=== PATIENT | female | born 1980 | race Caucasian/White ===

== ENCOUNTER 2016-10-04 | Emergency (ER) | payer BC ==
[2016-10-04 00:10] VITALS: BP 126/88
[2016-10-04 00:26] LABS: Hematocrit 37.6 % (37.0-47.0); Hemoglobin 12.7 gm/dL (12.5-16.0); Mean Cell Volume 85.8 fl (78-100); Mean Corpuscular Hgb Conc 33.8 g/dl (32-36); Neutrophil # 12.1 K/mm3 (1.3-6.0); Platelet Count 292 K/mm3 (150-450); Red Blood Count 4.38 M/mm3 (4.2-5.4); Red Cell Distribution Width 12.3 % (11.5-14.0); White Blood Count 14.1 K/mm3 (4.0-10.5)
[2016-10-04 00:33] LABS: Urine Bilirubin Negative (NEGATIVE); Urine Blood Negative /ul (NEGATIVE); Urine Ketone 5 mg/dL (NEGATIVE); Urine Nitrite Negative (NEGATIVE); Urine Protein Negative (NEGATIVE); Urine Urobilinogen Normal (NORMAL); Urine pH 7.5 pH (5.0-7.0)
[2016-10-04 00:39] LABS: Urine Amorphous Sediment Few - 1+ (NONE-FEW); Urine Appearance Clear; Urine Bacteria None Seen; Urine Color Yellow; Urine Mucus Few - 1+; Urine RBC 0-5 /hpf (0-5); Urine WBC 0-5 /hpf (0-5)
[2016-10-04 00:52] LABS: Albumin * 3.7 gm/dl (3.4-5.0); Anion Gap 13.3 mmol/L (6.8-13.8); BUN/Creatinine Ratio 12.8 (9.0-21.6); Bilirubin, Total 0.4 mg/dL (0.0-1.1); Ca. Corrected For Albumin 8.5 mg/dL (8.4-10.2); Calcium * 8.6 mg/dL (7.9-10.9); Carbon Dioxide 25.9 mmol/L (24-32.6); Potassium 3.2 mmol/L (3.4-4.6)
== END 2016-10-04 01:15 | disposition left against medical advice (07) ==
LOC: ER
DX: Z53.21 Procedure and treatment not carried out due to patient leaving prior to being seen by health care provider (principal)

== ENCOUNTER 2019-03-21 19:29 | Observation (INO) ==
[2019-03-21] MEDS ORDERED: ONDANSETRON HCL/PF 2 MG/ML VIAL IV ONE (20:18)
[2019-03-21] MEDS ORDERED: KETOROLAC TROMETHAMINE 30 MG/ML VIAL IV ONE (20:18)
[2019-03-21 20:29] LABS: Hematocrit 43.9 % (37.0-47.0); Hemoglobin 14.6 gm/dL (12.5-16.0); Mean Cell Volume 90.3 fl (78-100); Mean Corpuscular Hgb Conc 33.3 g/dl (32-36); Mean Platelet Volume 10.2 fl (8-12.5); Neutrophil # 14.4 K/mm3 (1.3-6.0); Neutrophil % 85.1 % (42-75.0); Platelet Count 290 K/mm3 (150-450); Red Blood Count 4.86 M/mm3 (4.2-5.4); Red Cell Distribution Width 12.5 % (11.5-14.0); White Blood Count 16.9 K/mm3 (4.0-10.5)
[2019-03-21 20:44] LABS: Anion Gap 14.4 mmol/L (6.8-13.8); BUN/Creatinine Ratio 13.6 (9.0-21.6); Bilirubin, Total 0.4 mg/dL (0.0-1.1); Ca. Corrected For Albumin 8.9 mg/dL (8.4-10.2); Calcium * 9.2 mg/dL (7.9-10.9); Carbon Dioxide 24.3 mmol/L (24-32.6); Potassium 3.7 mmol/L (3.4-4.6); Total Protein 7.7 gm/dL (6.2-8.2)
[2019-03-21 20:57] LABS: Urine Bilirubin Negative (NEGATIVE); Urine Blood Negative /ul (NEGATIVE); Urine Ketone Large mg/dL (NEGATIVE); Urine Nitrite Negative (NEGATIVE); Urine Protein 15 mg/dL (NEGATIVE); Urine Specific Gravity 1.015 SP.GR. (1.005-1.010); Urine Urobilinogen Normal (NORMAL); Urine pH 8.5 pH (5.0-7.0)
[2019-03-21 21:05] LABS: Urine Appearance Clear (CLEAR); Urine Bacteria TRACE; Urine Color Yellow; Urine RBC None Seen /hpf (0-5); Urine WBC TRACE /hpf (0-5)
--- NOTE | 2019-03-21 21:20 | ERNOTE ---
Abdominal HPI - Narrative Date of Service: 03/21/19 - General Chief Complaint: Abdominal Pain Time Seen by Provider: 03/21/19 20:09 Source: patient Exam Limitations: no limitations - Immun/Allergies/Home Medications Immunizatons: IMMUNIZATION HX Immunizations Up to Date Yes History of Influenza Vaccine Yes Allergies/Adverse Reactions: Allergies No Known Allergies Allergy (Verified 03/21/19 19:37) Home Medications: HOME MEDICATIONS alprazolam 0.5 mg tablet 0.5 mg PO BID PRN 08/30/18 [Last Taken Unknown] Esomeprazole Magnesium [Nexium] 40 mg PO DAILY 03/21/19 [Last Taken Unknown] - Pain Score Pain Score #1 Pain Score: 9 Abdominal Pain Onset Location: [facility] Pain Radiation: no radiation - History of Present Illness Narrative: Patient is brought to the emergency department by family members for left lower quadrant pain. She states this is severe, sharp stabbing and colicky. It started today about 1:00 in the afternoon. She started vomiting around 5:00 in the afternoon. She has not been able to get any better at home trying multiple different [id number] and position change maneuvers. She had a normal bowel movement today, no blood, no constipation or diarrhea. She states that she has vomited several times noting no blood or coffee-ground emesis. She had not been sick prior to the onset of pain and vomiting. She has urinated several times since onset of pain, has not noted any blood. She has never had a kidney stone, she has had a complete hysterectomy due to history of severe iron deficiency, trying to retain blood by decreasing menses. She is also had pyloric stenosis surgery as an adult. She has a large midline scar from this. She retains gallbladder, retains her appendix. She is on proton pump inhibitor, has been on this for years. She states that she has not been having trouble with her heartburn. No fevers Date (Duration): 03/21/19 Time (Timing): 13:00 Timing: getting worse, intermittent Quality: severe Activities at Onset: rest Associated Symptoms: Present: vomiting Review of Systems - Review of Systems Constitutional: Present: no symptoms reported ENT: Present: no symptoms reported Respiratory: Present: no symptoms reported Cardiology: Present: no symptoms reported Gastrointestinal/Abdominal: Present: See HPI Genitourinary: Present: no symptoms reported. Absent: hematuria, decreased urinary output Medical History (Last Reviewed 03/21/19 @ 21:17 by Roxy James MD) Acid reflux Onset Date: Unknown Anemia, iron deficiency Onset Date: Unknown d/t malabsorbtion History of blood transfusion Onset Date: ~03/2010 after pyloric stenosis surgery Hypertrophic pyloric stenosis Onset Date: ~03/2010 IUD complication Onset Date: Unknown Insomnia Onset Date: ~06/13/12 Pyloric stenosis, acquired Onset Date: ~03/2010 Surgical History: Surgical History (Last Reviewed 03/21/19 @ 21:17 by Roxy James MD) History of endometrial biopsy Onset Date: ~09/11/13 Negative for hyperplasia and malignancy History of hysteroscopy Onset Date: ~11/05/13 w/Novasure ablation History of total vaginal hysterectomy (TVH) Onset Date: ~10/21/14 Cervix-no pathology. Endometrium-absent endometrium exhibiting progesterone effect of myometrium. Myometrium-no pathologic findings. Hx of bilateral salpingectomy Onset Date: ~10/21/14 Hx of breast augmentation Onset Date: ~02/2014 Hx of cystoscopy Onset Date: ~10/21/14 Hx of laparoscopy Onset Date: ~09/2005 IUD removal Hx of ovarian cystectomy Onset Date: ~2005 Hx of pylorotomy Onset Date: ~03/2010 Hx of tonsillectomy Onset Date: Unknown 1 yrs old [place] teeth removed Onset Date: ~2012 Family History: Family History (Last Reviewed 03/21/19 @ 21:17 by Roxy James MD) Mother Hypertension Grandmother Heart disease Maternal Diabetes mellitus, type II Maternal Grandfather Heart disease Maternal Social History: (Last Reviewed 03/21/19 @ 21:17 by Roxy James MD) Social History: Marital status: household members: spouse, children number of children: 4 current occupational status: unemployed current occupation: Stay at home Mom current occupational exposures/hazards: No Service: No Tobacco: Smoking Status: Never smoker Alcohol: alcohol intake: current details: 1/month Substance Use: substance use type: does not use Dietary Habits: caffeine: Yes caffeine comment: Current every day Personal Safety: victim of physical abuse: No victim of emotional abuse: No Physical Exam - Physical Exam General Appearance: Present: wd/wn, alert, severe distress - See Head Exam: Present: normal inspection, no evidence of injury Ears, Nose, Throat: Present: normal ENT inspection Neck: Present: normal inspection Respiratory: Present: no respiratory distress - if he went into place an NG she was, normal breath sounds Cardiovascular/Chest: Present: regular rate, rhythm, no murmur, tachycardia - Call Gastrointestinal/Abdominal: Present: other - Patient's abdomen is soft, nondistended. She has pain in the left lower quadrant. This is worse with palpation. There is no guarding, no rebound, no signs of peritonitis. No masses palpated. She does not have left flank pain. There is no left upper quadrant or right upper quadrant pain. She has mild suprapubic pain. She has a well-healed anterior ventral scar from her pyloric stenosis surgery. Extremity Exam: Present: normal inspection, no edema Progress - Results and Orders Patient's Lab Results:: I have reviewed the patient's lab results. Results and Orders: Laboratory Tests 03/21/19 03/21/19 03/21/19 20:25 20:25 20:53 WBC 16.9 H Hgb 14.6 Hct 43.9 Plt Count 290 Sodium 134 Potassium 3.7 Chloride 99 BUN 12 Creatinine 0.88 Random Glucose 128 H AST 12 ALT 11 L Amylase 51 Lipase 126 Urine Ketones Large Urine Blood Negative - Vital Signs Patient's Vital Signs:: I have reviewed the patient's vital signs. Vital Signs: Vital Signs 03/21/19 19:39 Temperature 36.5 C Pulse Rate 84 Respiratory Rate 18 Blood Pressure 153/97 H O2 Sat by Pulse Oximetry 100 - CT/Ultrasound CT/Ultrasound Narrative: Patient CT scan shows small bowel obstruction, distal. There is a probable transition point at the ileocolic junction. The appendix is normal. There is no diverticulitis. - Progress/Reassessment Chief Complaint: Abdominal Pain Progress:: Improved Progress Note-Subjective: 03/21/19 21:[address] Alexander who is hospitalist rehabilitation physician this evening. Discussed the findings of CT scan as well as the patient's progress here. I recommended that the patient be hospitalized observation status for monitoring and bowel rest for her SBO. She was given additional pain medication, started on IV fluids for hydration. She will not have an NG placed at this time because she is not vomiting any longer. This can be placed if needed. Dr. Alexander agreed. The patient will be placed observation. I discussed this with patient and her family. Questions answered. Departure Clinical Impression: Small bowel obstruction - Departure Disposition: Still a patient Condition: Good Referrals: Janna Myrick DO [Primary Care Provider] -
[2019-03-21] MEDS ORDERED: HYDROmorphone HCL 1 MG/ML DISP.SYRIN IV ONE (21:31)
[2019-03-21] MEDS: NORMAL SALINE 1,000 ML IV PRN (21:44)
[2019-03-21] MEDS ORDERED: ONDANSETRON HCL/PF 2 MG/ML VIAL IV PRN (22:23)
[2019-03-21] MEDS ORDERED: HYDROmorphone HCL 1 MG/ML DISP.SYRIN IV PRN (22:23)
[2019-03-22] MEDS: NORMAL SALINE 1,000 ML IV PRN (05:12)
[2019-03-22 06:32] LABS: Albumin * 3.1 gm/dl (3.4-5.0); Anion Gap 10.4 mmol/L (6.8-13.8); BUN/Creatinine Ratio 16.3 (9.0-21.6); Bilirubin, Total 0.5 mg/dL (0.0-1.1); Ca. Corrected For Albumin 8.8 mg/dL (8.4-10.2); Calcium * 8.4 mg/dL (7.9-10.9); Carbon Dioxide 28.5 mmol/L (24-32.6); Potassium 3.9 mmol/L (3.4-4.6); Total Protein 6.2 gm/dL (6.2-8.2)
[2019-03-22 06:33] LABS: Hematocrit 38.8 % (37.0-47.0); Hemoglobin 12.8 gm/dL (12.5-16.0); Mean Cell Volume 92.2 fl (78-100); Mean Corpuscular Hemoglobin 30.4 pg (27-31); Mean Platelet Volume 10.7 fl (8-12.5); Neutrophil # 9.7 K/mm3 (1.3-6.0); Neutrophil % 79.2 % (42-75.0); Platelet Count 239 K/mm3 (150-450); Red Blood Count 4.21 M/mm3 (4.2-5.4); Red Cell Distribution Width 12.4 % (11.5-14.0); White Blood Count 12.2 K/mm3 (4.0-10.5)
[2019-03-22] MEDS ORDERED: ACETAMINOPHEN 500 MG TABLET PO PRN (09:54)
--- NOTE | 2019-03-22 13:23 | HPDIS ---
Chief Complaint - Chief Complaint Date of Service: 03/22/19 Time of Service: 09:20 Chief Complaint: Abdominal pain with nausea and vomiting History of Present Illness: Елена Boyce is a 38-year-old female who presented to ER with severe abdominal pain nausea and vomiting. CT scan revealed what appeared to be a distal small bowel obstruction. She was given antiemetics and started on IV fluids. Her nausea and vomiting stopped she had a restful night and is feeling much better this morning. She was able to eat a full liquid breakfast about 9:00 and then ate a soft diet for lunch. She has had no return of abdominal pain nausea or vomiting. There is not been any diarrhea either. She is up and ambulatory without difficulty. Laboratory work in the area ER showed the white count of 16,900 and this morning's repeat is 12,200. Electrolytes, renal function, and hepatic function are all normal. She has normal bowel sounds this morning. Her disposition is improved. Prognosis is good. Medical History (Last Reviewed 03/21/19 @ 22:21 by Imelda Jones RN) Acid reflux Onset Date: Unknown Anemia, iron deficiency Onset Date: Unknown d/t malabsorbtion History of blood transfusion Onset Date: ~03/2010 after pyloric stenosis surgery Hypertrophic pyloric stenosis Onset Date: ~03/2010 IUD complication Onset Date: Unknown Insomnia Onset Date: ~06/13/12 Pyloric stenosis, acquired Onset Date: ~03/2010 Surgical History: Surgical History (Last Reviewed 03/21/19 @ 22:21 by Imelda Jones RN) History of endometrial biopsy Onset Date: ~09/11/13 Negative for hyperplasia and malignancy History of hysteroscopy Onset Date: ~11/05/13 w/Novasure ablation History of total vaginal hysterectomy (TVH) Onset Date: ~10/21/14 Cervix-no pathology. Endometrium-absent endometrium exhibiting progesterone effect of myometrium. Myometrium-no pathologic findings. Hx of bilateral salpingectomy Onset Date: ~10/21/14 Hx of breast augmentation Onset Date: ~02/2014 Hx of cystoscopy Onset Date: ~10/21/14 Hx of laparoscopy Onset Date: ~09/2005 IUD removal Hx of ovarian cystectomy Onset Date: ~2005 Hx of pylorotomy Onset Date: ~03/2010 Hx of tonsillectomy Onset Date: Unknown 1 yrs old [place] teeth removed Onset Date: ~2012 Family History: Family History (Last Reviewed 03/21/19 @ 22:22 by Imelda Jones RN) Mother Hypertension Grandmother Heart disease Maternal Diabetes mellitus, type II Maternal Grandfather Heart disease Maternal Social History: (Last Reviewed 03/21/19 @ 22:26 by Imelda Jones RN) Social History: Marital status: household members: spouse, children number of children: 4 current occupational status: unemployed current occupation: Stay at home Mom current occupational exposures/hazards: No Service: No Tobacco: Smoking Status: Never smoker Alcohol: alcohol intake: current details: 1/month Substance Use: substance use type: does not use Dietary Habits: caffeine: Yes caffeine comment: Current every day Personal Safety: victim of physical abuse: No victim of emotional abuse: No Review Of Systems (GEN) - Review of Systems Generalized/Overall Review: Present: Malaise EENTM: Present: No Symptoms Reported Respiratory: Present: No Symptoms Reported Cardiac: Present: No Symptoms Reported Abdominal: Present: Nausea, Vomiting, Abdominal Pain Genitourinary: Present: No Symptoms Reported Musculoskeletal: Present: No Symptoms Reported Neurological: Present: No Symptoms Reported Skin: Present: No Symptoms Reported Endocrine: Present: No Symptoms Reported Misc: All systems neg except as marked Immunizations: IMMUNIZATION HX Immunizations Up to Date Yes History of Influenza Vaccine Yes Allergies/Adverse Reactions: Allergies Allergy/AdvReac Type Severity Reaction Status Date / Time No Known Allergies Allergy Verified 03/21/19 22:26 Home Medications: HOME MEDICATIONS alprazolam 0.5 mg tablet 0.5 mg PO BID PRN 08/30/18 [Last Taken Unknown] Esomeprazole Magnesium [Nexium] 40 mg PO DAILY 03/21/19 [Last Taken Unknown] Exam - Exam Vital Signs: Vital Signs - Last Taken Temp 37.2 C 03/22/19 10:26 Pulse 87 03/22/19 10:26 Resp 20 03/22/19 10:26 BP 129/79 03/22/19 10:26 Pulse Ox 99 03/22/19 07:00 Constitutional: Present: Alert, Oriented x3, Cooperative, Well developed, Well nourished, No distress ENT Exam: Present: normal ENT inspection, hearing grossly normal, pharynx normal Eye Exam: bilateral eye: normal inspection, PERRL, EOMI Neck: Present: non-tender, full range of motion, supple, normal inspection Back Exam: Present: normal inspection, no CVA tenderness, no vertebral tenderness Breasts: Present: Exam deferred Respiratory: Present: chest non-tender, lungs clear, normal breath sounds, no respiratory distress, no accessory muscle use Cardiovascular/Chest: Present: normal peripheral pulses, regular rate, rhythm, no chest tenderness, no edema, no gallop, no JVD, no murmur, no rub Peripheral Pulses: carotid (R): 2+, carotid (L): 2+, radial (R): 2+, radial (L): 2+ Abdomen: Present: Normal bowel sounds, soft, nontender - This morning. She had a lot of discomfort in the emergency room last night but that is all resolved now., nondistended, no rebound tenderness, no hepatospenomegaly /Rectal: Present: Exam deferred Extremity: Present: normal range of motion, non-tender, normal inspection, no pedal edema, no calf tenderness, normal capillary refill Skin Exam: Present: normal color, warm/dry, no cyanosis Lymphatic: Present: no adenopathy Neurologic: Present: websphere architect II-XII nml as tested Appearance: Present: appropriate appearance, appropriate insight, neat Eye contact: Present: cooperative, good eye contact, normal speech Thoughts: Present: normal thought pattern, no apparent hallucination Diagnostic Studies: Abnormal Lab Results 03/21/19 03/21/19 03/21/19 Range/Units 20:25 20:25 20:53 WBC 16.9 H (4.0-10.5) K/mm3 Immature Gran # (Auto) 0.05 H (0.000-0.0310) K/mm3 Neutrophils % 85.1 H (42-75.0) % Lymphocytes % 6.4 L (20-51) % Monocytes % (0.0-9) % Neutrophils # 14.4 H (1.3-6.0) K/mm3 Lymphocytes # 1.08 L (1.5-3.5) k/mm3 Monocytes # 1.3 H (0.0-1.0) k/mm3 Anion Gap 14.4 H (6.8-13.8) mmol/L Random Glucose 128 H (70-110) mg/dL ALT 11 L (19-67) U/L Albumin (3.4-5.0) gm/dl Urine Protein 15 H (NEGATIVE) mg/dL Urine WBC Trace H (0-5) /hpf 03/22/19 03/22/19 Range/Units 05:35 06:00 WBC 12.2 H D (4.0-10.5) K/mm3 Immature Gran # (Auto) 0.04 H (0.000-0.0310) K/mm3 Neutrophils % 79.2 H (42-75.0) % Lymphocytes % 8.4 L (20-51) % Monocytes % 10.8 H (0.0-9) % Neutrophils # 9.7 H (1.3-6.0) K/mm3 Lymphocytes # 1.03 L (1.5-3.5) k/mm3 Monocytes # 1.3 H (0.0-1.0) k/mm3 Anion Gap (6.8-13.8) mmol/L Random Glucose (70-110) mg/dL ALT 8 L (19-67) U/L Albumin 3.1 L (3.4-5.0) gm/dl Urine Protein (NEGATIVE) mg/dL Urine WBC (0-5) /hpf Laboratory Results WBC 12.2 K/mm3 (4.0-10.5) H D 03/22/19 06:00 RBC 4.21 M/mm3 (4.2-5.4) 03/22/19 06:00 Hgb 12.8 gm/dL (12.5-16.0) 03/22/19 06:00 Hct 38.8 % (37.0-47.0) 03/22/19 06:00 MCV 92.2 fl (78-100) 03/22/19 06:00 MCH 30.4 pg (27-31) 03/22/19 06:00 MCHC 33.0 g/dl (32-36) 03/22/19 06:00 RDW 12.4 % (11.5-14.0) 03/22/19 06:00 Plt Count 239 K/mm3 (150-450) 03/22/19 06:00 MPV 10.7 fl (8-12.5) 03/22/19 06:00 Immature Gran % (Auto) 0.30 % (0.001-0.429) 03/22/19 06:00 Immature Gran # (Auto) 0.04 K/mm3 (0.000-0.0310) H 03/22/19 06:00 Neutrophils % 79.2 % (42-75.0) H 03/22/19 06:00 Lymphocytes % 8.4 % (20-51) L 03/22/19 06:00 Monocytes % 10.8 % (0.0-9) H 03/22/19 06:00 Eosinophils % 1.1 % (0.0-3.0) 03/22/19 06:00 Basophils % 0.2 % (0.0-1.0) 03/22/19 06:00 Nucleated RBC % 0.0 k/mm3 (0-1) 03/22/19 06:00 Neutrophils # 9.7 K/mm3 (1.3-6.0) H 03/22/19 06:00 Lymphocytes # 1.03 k/mm3 (1.5-3.5) L 03/22/19 06:00 Monocytes # 1.3 k/mm3 (0.0-1.0) H 03/22/19 06:00 Eosinophils # 0.1 k/mm3 (0.0-0.7) 03/22/19 06:00 Absolute Basophils 0.0 k/mm3 (0.0-0.1) 03/22/19 06:00 Sodium 138 mmol/L (132-142) 03/22/19 05:35 Plasma Sodium 138 mmol/L (130-142) 03/22/19 05:35 Potassium 3.9 mmol/L (3.4-4.6) 03/22/19 05:35 Chloride 103 mmol/L (97-106) 03/22/19 05:35 Carbon Dioxide 28.5 mmol/L (24-32.6) 03/22/19 05:35 Anion Gap 10.4 mmol/L (6.8-13.8) 03/22/19 05:35 BUN 13 mg/dL (3-23) 03/22/19 05:35 Creatinine 0.80 mg/dL (0.4-1.4) 03/22/19 05:35 Est GFR (Non-Af Amer) 84 mL/min (60-130) 03/22/19 05:35 BUN/Creatinine Ratio 16.3 (9.0-21.6) 03/22/19 05:35 Random Glucose 102 mg/dL (70-110) 03/22/19 05:35 Calcium 8.4 mg/dL (7.9-10.9) 03/22/19 05:35 Calcium Adj for Albumin 8.8 mg/dL (8.4-10.2) 03/22/19 05:35 Total Bilirubin 0.5 mg/dL (0.0-1.1) 03/22/19 05:35 AST 10 U/L (0-48) 03/22/19 05:35 ALT 8 U/L (19-67) L 03/22/19 05:35 Alkaline Phosphatase 50 U/L (50-170) 03/22/19 05:35 Total Protein 6.2 gm/dL (6.2-8.2) 03/22/19 05:35 Albumin 3.1 gm/dl (3.4-5.0) L 03/22/19 05:35 Amylase 51 U/L (25-115) 03/21/19 20:25 Lipase 126 U/L (73-393) 03/21/19 20:25 Urine Color Yellow 03/21/19 20:53 Urine Appearance Clear (CLEAR) 03/21/19 20:53 Urine pH 8.5 pH (5.0-7.0) 03/21/19 20:53 Ur Specific [place] 1.015 SP.GR. (1.005-1.010) 03/21/19 20:53 Urine Protein 15 mg/dL (NEGATIVE) H 03/21/19 20:53 Urine Glucose (UA) Negative mg/dL (NEGATIVE) 03/21/19 20:53 Urine Ketones Large mg/dL (NEGATIVE) 03/21/19 20:53 Urine Blood Negative /ul (NEGATIVE) 03/21/19 20:53 Urine Nitrate Negative (NEGATIVE) 03/21/19 20:53 Urine Bilirubin Negative mg/dl (NEGATIVE) 03/21/19 20:53 Prot Sulfosalicylic Acd Negative mg/dL (0) 03/21/19 20:53 Urine Urobilinogen Normal EU/dl (NORMAL) 03/21/19 20:53 Ur Leukocyte Esterase Negative /ul (NEGATIVE) 03/21/19 20:53 Urine RBC None seen /hpf (0-5) 03/21/19 20:53 Urine WBC Trace /hpf (0-5) H 03/21/19 20:53 Ur Epithelial Cells 0-5 /hpf (0-5) 03/21/19 20:53 Urine Bacteria Trace (NONE) 03/21/19 20:53 Urine Culture Comments No culture indicated 03/21/19 20:53 Assessment/Plan - Narrative Narrative: Lab was repeated this morning and has essentially normalized. White count is not quite back to normal but close. She will be discharged home. - Assessment/Plan (1) Abdominal pain Problem: Resolved Qualifiers: Abdominal location: right lower quadrant Qualified Code(s): R10.31 - Right lower quadrant pain (2) Nausea and vomiting Problem: Resolved Qualifiers: Vomiting type: bilious vomiting Qualified Code(s): R11.14 - Bilious vomiting (3) Diarrhea Problem: Resolved Qualifiers: Diarrhea type: functional diarrhea Qualified Code(s): K59.1 - Functional diarrhea (4) Small bowel obstruction Problem: Acute (1) Abdominal pain Problem: Acute Qualifiers: Abdominal location: right lower quadrant Qualified Code(s): R10.31 - Right lower quadrant pain (2) Nausea and vomiting Problem: Acute Qualifiers: Vomiting type: bilious vomiting Qualified Code(s): R11.14 - Bilious vomiting (3) Diarrhea Problem: Acute Qualifiers: Diarrhea type: unspecified type Qualified Code(s): R19.7 - Diarrhea, unspecified (4) Small bowel obstruction Problem: Acute Date of Discharge:: 03/22/19 Description of Stay: [place] was seen in the emergency room started on antiemetics and IV therapy. She responded very well to the past and awoke this morning without any abdominal discomfort and no nausea. She has been fed twice and has tolerated it well. She is had no return of nausea or abdominal pain. Her vital signs remained stable. Her white count has improved from 16,900-12,200 with normal differential now. Rest for chemistries and lab are all normal. CT of the abdomen was done in ER showing what appeared to be a distal small bowel obstruction but clinically I have my doubts. At any rate she is much improved back to baseline and will be discharged home. Procedures Performed: none Results and Findings: Lab Pending Results 03/21/19 20:25: WBC 16.9 H, RBC 4.86, Hgb 14.6, Hct 43.9, MCV 90.3, MCH 30.0, MCHC 33.3, RDW 12.5, Plt Count 290, MPV 10.2, Immature Gran % (Auto) 0.30, Immature Gran # (Auto) 0.05 H, Neutrophils % 85.1 H, Lymphocytes % 6.4 L, Monocytes % 7.5, Eosinophils % 0.4, Basophils % 0.3, Nucleated RBC % 0.0, Neutrophils # 14.4 H, Lymphocytes # 1.08 L, Monocytes # 1.3 H, Eosinophils # 0.1, Absolute Basophils 0.1 03/21/19 20:25: Sodium 134, Plasma Sodium 134, Potassium 3.7, Chloride 99, Carbon Dioxide 24.3, Anion Gap 14.4 H, BUN 12, Creatinine 0.88, Est GFR (Non-Af Amer) 76, BUN/Creatinine Ratio 13.6, Random Glucose 128 H, Calcium 9.2, Calcium Adj for Albumin 8.9, Total Bilirubin 0.4, AST 12, ALT 11 L, Alkaline Phosphatase 62, Total Protein 7.7, Albumin 4.0, Amylase 51, Lipase 126 03/21/19 20:53: Urine Color Yellow, Urine Appearance Clear, Urine pH 8.5, Ur Specific [place] 1.015, Urine Protein 15 H, Urine Glucose (UA) Negative, Urine Ketones Large, Urine Blood Negative, Urine Nitrate Negative, Urine Bilirubin Negative, Prot Sulfosalicylic Acd Negative, Urine Urobilinogen Normal, Ur Leukocyte Esterase Negative, Urine RBC None seen, Urine WBC Trace H, Ur Epithelial Cells 0-5, Urine Bacteria Trace, Urine Culture Comments No culture indicated 03/22/19 05:35: Sodium 138, Plasma Sodium 138, Potassium 3.9, Chloride 103, Carbon Dioxide 28.5, Anion Gap 10.4, BUN 13, Creatinine 0.80, Est GFR (Non-Af Amer) 84, BUN/Creatinine Ratio 16.3, Random Glucose 102, Calcium 8.4, Calcium Adj for Albumin 8.8, Total Bilirubin 0.5, AST 10, ALT 8 L, Alkaline Phosphatase 50, Total Protein 6.2, Albumin 3.1 L 03/22/19 06:00: WBC 12.2 H D, RBC 4.21, Hgb 12.8, Hct 38.8, MCV 92.2, MCH 30.4, MCHC 33.0, RDW 12.4, Plt Count 239, MPV 10.7, Immature Gran % (Auto) 0.30, Immature Gran # (Auto) 0.04 H, Neutrophils % 79.2 H, Lymphocytes % 8.4 L, Monocytes % 10.8 H, Eosinophils % 1.1, Basophils % 0.2, Nucleated RBC % 0.0, Neutrophils # 9.7 H, Lymphocytes # 1.03 L, Monocytes # 1.3 H, Eosinophils # 0.1, Absolute Basophils 0.0 Discharge Location: Home Disposition: Home self-care Condition: Good Face to Face Encounter completed per [facility] Guidelines: No Discharge Activity: Activity as tolerated Discharge Diet: General/regular food Referrals: Janna Myrick DO [Primary Care Provider] - Complete Home Medications List: Complete Home Medication List: alprazolam 0.5 mg tablet 0.5 mg PO BID PRN 08/30/18 Esomeprazole Magnesium [Nexium] 40 mg PO DAILY 03/21/19
[2019-03-22 14:19] VITALS: BP 123/77
== END 2019-03-22 14:15 | disposition home or self-care (01) ==
LOC: ER 19:29 → MS 19:29
PROVIDERS: ADMIT Family Medicine; ATTEND Family Medicine
DX: K56.609 Unspecified intestinal obstruction, unspecified as to partial versus complete obstruction; R19.7 Diarrhea, unspecified; R11.2 Nausea with vomiting, unspecified
CPT/HCPCS: 36415; 74176; 80053; 81001; 82150; 83690; 85025; 96360; 96361; 96374; 96375; 96376; 99285; G0378; J2405

== ENCOUNTER 2020-06-30 20:29 | Observation (INO) ==
[2020-06-30 21:13] LABS: Urine Bilirubin Negative (NEGATIVE); Urine Blood Negative /ul (NEGATIVE); Urine Ketone 50 mg/dL (NEGATIVE); Urine Nitrite Negative (NEGATIVE); Urine Protein Negative (NEGATIVE); Urine Specific Gravity 1.025 SP.GR. (1.005-1.010); Urine Urobilinogen Normal (NORMAL); Urine pH 6.5 pH (5.0-7.0)
[2020-06-30 21:15] LABS: Hematocrit 41.7 % (37.0-47.0); Hemoglobin 13.4 gm/dL (12.5-16.0); Mean Corpuscular Hemoglobin 28.3 pg (27-31); Mean Corpuscular Hgb Conc 32.1 g/dl (32-36); Mean Platelet Volume 10.5 fl (8-12.5); Neutrophil # 11.6 K/mm3 (1.3-6.0); Neutrophil % 85.1 % (42-75.0); Platelet Count 319 K/mm3 (150-450); Red Blood Count 4.74 M/mm3 (4.2-5.4); White Blood Count 13.6 K/mm3 (4.0-10.5)
[2020-06-30 21:25] LABS: Albumin * 3.8 gm/dl (3.4-5.0); Anion Gap 12.4 mmol/L (6.8-13.8); BUN/Creatinine Ratio 9.4 (9.0-21.6); Bilirubin, Total 0.6 mg/dL (0.0-1.1); Ca. Corrected For Albumin 8.6 mg/dL (8.4-10.2); Calcium * 8.8 mg/dL (7.9-10.9); Carbon Dioxide 25.2 mmol/L (24-32.6); Potassium 3.6 mmol/L (3.4-4.6); Total Protein 7.4 gm/dL (6.2-8.2)
[2020-06-30 21:25] LABS: Urine Appearance Clear (CLEAR); Urine Color Yellow; Urine RBC None Seen /hpf (0-5); Urine WBC TRACE /hpf (0-5)
[2020-06-30 21:26] LABS: Urine Bacteria 1+
[2020-06-30] MEDS ORDERED: DIATRIZOATE MEGLUMINE, SODIUM 30 ML BTL PO ONE (21:28)
--- NOTE | 2020-06-30 21:28 | ERNOTE ---
Abdominal HPI - General Chief Complaint: Abdominal Pain Time Seen by Provider: 06/30/20 21:15 Source: patient, family Exam Limitations: no limitations - Immun/Allergies/Home Medications Immunizatons: IMMUNIZATION HX Immunizations Up to Date Yes History of Influenza Vaccine Yes Allergies/Adverse Reactions: Allergies No Known Allergies Allergy (Verified 06/30/20 20:59) Home Medications: HOME MEDICATIONS dexlansoprazole 60 mg capsule,biphase delayed release 60 mg PO DAILY #90 cap 05/05/20 [Last Taken Unknown] - History of Present Illness Narrative: Patient had onset of upper abdominal pain yesterday. Is been crampy she has had no nausea vomiting or diarrhea. She had previous small bowel obstructions most recent about a year ago. Timing: getting worse Quality: moderate, cramping Activities at Onset: none Review of Systems - Review of Systems Constitutional: Absent: recent illness, fever, chills ENT: Absent: nose congestion, nasal drainage Respiratory: Absent: shortness of breath, cough Cardiology: Absent: chest pain, palpitations Gastrointestinal/Abdominal: Present: See HPI, nausea. Absent: vomiting, diarrhea Genitourinary: Absent: frequency, dysuria, hematuria Musculoskeletal: Present: See HPI, back pain Skin: Absent: rash, lesions Neurological: Absent: headache, dizziness/light-headedness Endocrine: Absent: excessive sweating Medical History (Last Reviewed 06/30/20 @ 23:49 by Marty Camacho DO) Acid reflux Onset Date: Unknown Anemia, iron deficiency Onset Date: Unknown d/t malabsorbtion History of blood transfusion Onset Date: ~03/2010 after pyloric stenosis surgery Hypertrophic pyloric stenosis Onset Date: ~03/2010 IUD complication Onset Date: Unknown Insomnia Onset Date: ~06/13/12 Pyloric stenosis, acquired Onset Date: ~03/2010 Surgical History: Surgical History (Last Reviewed 06/30/20 @ 23:49 by Marty Camacho DO) History of endometrial biopsy Onset Date: ~09/11/13 Negative for hyperplasia and malignancy History of hysteroscopy Onset Date: ~11/05/13 w/Novasure ablation History of total vaginal hysterectomy (TVH) Onset Date: ~10/21/14 Cervix-no pathology. Endometrium-absent endometrium exhibiting progesterone effect of myometrium. Myometrium-no pathologic findings. Hx of bilateral salpingectomy Onset Date: ~10/21/14 Hx of breast augmentation Onset Date: ~02/2014 Hx of cystoscopy Onset Date: ~10/21/14 Hx of laparoscopy Onset Date: ~09/2005 IUD removal Hx of ovarian cystectomy Onset Date: ~2005 Hx of pylorotomy Onset Date: ~03/2010 Hx of tonsillectomy Onset Date: Unknown 1 yrs old [place] teeth removed Onset Date: ~2012 Family History: Family History (Last Reviewed 06/30/20 @ 23:49 by Marty Camacho DO) Mother Hypertension Grandmother Heart disease Maternal Diabetes mellitus, type II Maternal Grandfather Heart disease Maternal Social History: (Last Reviewed 06/30/20 @ 23:49 by Marty Camacho DO) Social History: Marital status: household members: spouse number of children: 4 current occupational status: unemployed current occupation: Stay at home Mom current occupational exposures/hazards: No Service: No Tobacco: Smoking Status: Never smoker Alcohol: alcohol intake: current details: 1/month Substance Use: substance use type: does not use Dietary Habits: caffeine: Yes caffeine comment: Current every day Personal Safety: victim of physical abuse: No victim of emotional abuse: No Physical Exam - Physical Exam General Appearance: Present: wd/wn, alert, mild distress Head Exam: Present: normal inspection, no evidence of injury Neck: Present: normal inspection, nontender, supple Respiratory: Present: no respiratory distress, normal breath sounds, lungs clear Cardiovascular/Chest: Present: regular rate, rhythm, no murmur Gastrointestinal/Abdominal: Present: tenderness - Mid to upper abdomen/ epigastric, abnormal bowel sounds - Severely hypoactive. Absent: distended, guarding, rebound Back Exam: Present: normal inspection, normal range of motion, no vertebral tend erness Extremity Exam: Present: normal inspection, normal range of motion, no edema Neurological Exam: Present: alert, oriented, normal mood/affect Skin Exam: Present: normal color, warm/dry Lymphatic Exam: Present: no adenopathy Progress - Results and Orders Patient's Lab Results:: I have reviewed the patient's lab results. Results and Orders: Laboratory Tests 06/30/20 06/30/20 06/30/20 20:55 21:05 21:05 WBC 13.6 H Hgb 13.4 Hct 41.7 Plt Count 319 Neutrophils % 85.1 H Sodium 133 Potassium 3.6 Chloride 99 Carbon Dioxide 25.2 BUN 8 Creatinine 0.85 Random Glucose 138 H Calcium 8.8 Total Bilirubin 0.6 AST 13 ALT 16 L Alkaline Phosphatase 76 Amylase 44 Lipase 78 Urine Color Yellow Urine Appearance Clear Urine pH 6.5 Ur Specific [place] 1.025 Urine Glucose (UA) Negative Urine Ketones 50 Urine Blood Negative Urine Nitrate Negative Urine Bilirubin Negative Ur Leukocyte Esterase Negative Urine WBC Trace H Urine Culture Comments No culture indicated - Vital Signs Patient's Vital Signs:: I have reviewed the patient's vital signs. Vital Signs: Vital Signs 06/30/20 21:00 Temperature 37.3 C Pulse Rate 95 Respiratory Rate 19 Blood Pressure 161/93 H O2 Sat by Pulse Oximetry 97 - CT/Ultrasound CT/Ultrasound Narrative: CT abdomen pelvis with IV and oral contrast: 1. There is circumferential wall thickening involving a portion of the distal small bowel, compatible with enteritis. This causes a small bowel obstruction, with multiple dilated loops of mid small bowel measuring up to 3.8 cm in caliber. Small amount of mesenteric free fluid is noted adjacent to multiple dilated small loops. 2. No free air. No evidence of pneumatosis. - Progress/Reassessment Chief Complaint: Abdominal Pain Progress Note-Subjective: 07/01/20 01:[address] Kwok he agrees with admission to medicine and he will consult. I spoke with Dr. Davis she agrees with admission. 07/01/20 01:07 I spoke with the patient about admission NG tube etc. Patient states she is willing to be admitted but refuses NG tube. Departure Clinical Impression: Small bowel obstruction due to adhesions - Departure Disposition: Still a patient Condition: Stable Referrals: Janna Myrick DO [Primary Care Provider] -
[2020-07-01] MEDS ORDERED: MORPHINE SULFATE 2 MG/ML DISP.SYRIN IV ONE ×2 (00:39→01:08)
[2020-07-01] MEDS ORDERED: ONDANSETRON HCL/PF 2 MG/ML VIAL IV ONE ×2 (00:39→02:03)
[2020-07-01] MEDS ORDERED: HYDROmorphone HCL 1 MG/ML DISP.SYRIN IV ONE (02:05)
[2020-07-01] MEDS ORDERED: HYDROmorphone HCL 1 MG/ML DISP.SYRIN IV PRN (02:33)
[2020-07-01] MEDS ORDERED: NORMAL SALINE 1,000 ML IV PRN (02:34)
[2020-07-01] MEDS ORDERED: MORPHINE SULFATE 4 MG/ML SYRG IV PRN (02:54)
[2020-07-01] MEDS ORDERED: MORPHINE SULFATE 2 MG/ML DISP.SYRIN IV PRN (02:54)
[2020-07-01] MEDS ORDERED: PROCHLORPERAZINE EDISYLATE 5 MG/ML VIAL IV PRN (02:55)
[2020-07-01 07:56] LABS: Hematocrit 38.2 % (37.0-47.0); Hemoglobin 12.1 gm/dL (12.5-16.0); Mean Cell Volume 88.6 fl (78-100); Mean Corpuscular Hemoglobin 28.1 pg (27-31); Mean Corpuscular Hgb Conc 31.7 g/dl (32-36); Mean Platelet Volume 10.1 fl (8-12.5); Neutrophil # 6.7 K/mm3 (1.3-6.0); Neutrophil % 79.9 % (42-75.0); Platelet Count 254 K/mm3 (150-450); Red Blood Count 4.31 M/mm3 (4.2-5.4); Red Cell Distribution Width 13.1 % (11.5-14.0); White Blood Count 8.4 K/mm3 (4.0-10.5)
--- NOTE | 2020-07-01 08:40 | CONS ---
[facility] - [facility] Date of Service: 07/01/20 Narrative: The patient presented to the emergency room last night with a "couple day" history of abdominal pain, distention, and nausea. She was found to have elevated white blood cell count. A CT scan with contrast was done. The initial read suggested distal small bowel obstruction with thickening of the bowel wall. Over read this morning just possible fistulous as well. Case was discussed and the patient was to be admitted with NG suction, IV hydration, repeat labs this morning and a repeat abdominal x-ray. The patient refused a nasogastric tube. She has subsequently had 4 or 5 high-volume liquid stools and a lot of gas. She does not feel distended anymore and is thirsty Source: patient, RN/MD, old records Exam Limitations: no limitations - History of Present Illness Initial Comments: Her past history is remarkable for pyloric stenosis. This was diagnosed on EGD at [facility]. She was told she had H. pylori. He had a pyloric dilation which apparently resulted in a perforation. She required an exploratory laparotomy for repair. She apparently has had a subsequent EGD which showed some scarring in the area. In March 2019 she presented here with abdominal pain and distention. CT scan of the abdomen and pelvis without p.o. contrast suggested distal small bowel obstruction. She was admitted and had bowel movements the next morning and was discharged home. By her history she has had 5 attacks of pain and distention since then. She treats these by cutting back on her p.o. intake. They have all resolved until the episode last night. Timing/Duration: other - She started having abdominal pain "a couple of days ago" Modifying Factors - (Worsens): Reports: movement Modifying Factors - (Improves): Reports: rest Associated Symptoms: loss of appetite, nausea Allergies/Adverse Reactions: Allergies No Known Allergies Allergy (Verified 06/30/20 20:59) Home Medications: Home Medications Medication Instructions Recorded Last Taken dexlansoprazole 60 mg 60 mg PO DAILY #90 cap 05/05/20 Unknown capsule,biphase delayed release Procedures Endometrial ablation (11/05/13) Episiotomy (12/02/04) Excision of lesion of tendon sheath of hand (03/28/07) Hysteroscopy (11/05/13) Injection of anesthetic into spinal canal for analgesia (11/30/06) Injection of other agent into spinal canal (10/18/02) Insertion of catheter into spinal canal for infusion of therapeutic or palliative substances (11/30/06) Laparoscopy (10/13/05) Medical induction of labor (12/02/04) Other and unspecified vaginal hysterectomy (10/21/14) Other artificial rupture of membranes (12/02/04) Removal of both fallopian tubes at same operative episode (10/21/14) Removal of intrauterine contraceptive device (10/13/05) Repair of current obstetric laceration of rectum and sphincter ani (11/30/06) Repair of other current obstetric laceration (10/18/02) Medications - Medications Current Medications: Current Medications Sodium Chloride (Sodium Chloride 0.9%) 1,000 mls @ 75 mls/hr IV .[id number] PRN PRN Reason: HYDRATION Stop: 07/31/20 02:35 Last Admin: 07/01/20 03:10 Dose: 75 mls/hr Documented by: Prochlorperazine Edisylate (Prochlorperazine Edisylate 5 Mg/Ml Vial) 5 mg IV Q4H PRN PRN Reason: Nausea Stop: 07/31/20 02:56 Last Admin: 07/01/20 06:41 Dose: 5 mg Documented by: Review of Systems - Review of Systems Generalized/Overall Review: Absent: Chills, Fever EENTM: Present: No Symptoms Reported Respiratory: Absent: Cough, Shortness of Breath Cardiac: Absent: Chest Pain, Palpitations Abdominal: Present: Other - Her abdominal distention has resolved. She is now thirsty. She has had multiple liquid bowel movements Musculoskeletal: Present: No Symptoms Reported Neurological: Present: Headache - No associated neurologic symptoms Skin: Present: No Symptoms Reported Endocrine: Present: No Symptoms Reported Physical Examination - Exam Vital Signs: Vital Signs - Last Taken Temp 36.8 C 07/01/20 06:24 Pulse 81 07/01/20 06:24 Resp 18 07/01/20 06:24 BP 114/79 07/01/20 06:24 Pulse Ox 99 07/01/20 06:24 O2 Oxygen Delivery Method Room Air Constitutional: Present: Alert, Oriented x3, Cooperative, Well developed, Well nourished, No distress ENT Exam: Present: normal ENT inspection Eye Exam: bilateral eye: normal inspection Neck: Present: full range of motion, normal inspection Breasts: Present: Exam deferred Respiratory: Present: normal breath sounds Cardiovascular/Chest: Present: regular rate, rhythm, no murmur Abdomen: Present: soft, nontender, nondistended, other - Healed upper abdominal incision. Absent: Normal bowel sounds, hernia /Rectal: Present: Exam deferred Extremity: Present: normal range of motion, normal inspection, no pedal edema Skin Exam: Present: normal color Neurologic: Present: floor surfacer II-XII nml as tested, normal cerebellar test, no motor/sensory deficits Appearance: Present: appropriate appearance, appropriate insight, neat, no memory impairment Eye contact: Present: cooperative, good eye contact, normal speech Thoughts: Present: normal thought pattern - Results and Findings: Lab/Microbiology results last 24 hrs: Abnormal/Pending Laboratory Last 24 HRS 07/01/20 06/30/20 06/30/20 07:50 21:05 21:05 WBC 13.6 H Hgb 12.1 L MCHC 31.7 L Neutrophils % 79.9 H 85.1 H Lymphocytes % 8.3 L 5.1 L Monocytes % 11.0 H Neutrophils # 6.7 H 11.6 H Lymphocytes # 0.70 L 0.70 L Monocytes # 1.2 H Random Glucose 138 H ALT 16 L Urine WBC Ur Epithelial Cells Urine Bacteria 06/30/20 20:55 WBC Hgb MCHC Neutrophils % Lymphocytes % Monocytes % Neutrophils # Lymphocytes # Monocytes # Random Glucose ALT Urine WBC Trace H Ur Epithelial Cells 5-10 H Urine Bacteria 1+ H CT scan of the abdomen and pelvis was initially read as distal small bowel obstruction with a transition point in the ileum and bowel wall thickening. Over read suggest the possibility of fistulous as well. - Assessments/Findings (1) Small bowel obstruction Diagnosis(s): The etiology for the recurrent obstructions is unclear. He may have adhesions from her previous perforation/operation, however the findings are also highly suspicious for inflammatory bowel disease. The process is proximal to the ileocecal valve and may not be amenable to biopsy by colonoscopy. Currently her obstruction appears resolved. I have arranged for an IBD panel to be done today. Consent for release of information will be sent to [facility] to obtain all records for present and future reference. She could be trialed on clear liquids with diet advancement. If tolerated could be discharged later today. Case discussed with Dr. Myrick. Problem: Resolved
--- NOTE | 2020-07-01 08:49 | HP ---
Chief Complaint - Chief Complaint Date of Service: 07/01/20 Time of Service: 08:25 Chief Complaint: abdominal pain History of Present Illness: Patient with past medical history of previous small bowel obstructions presents with two days central abdominal pain. She denied nausea, vomiting, fever, med changes, or other symptoms. She was hospitalized for this in March 2019. She has had a few episodes at home for which she did not seek medical attention that resolved on their own. In the ED, she was diagnosed with a small bowel obstruction and given pain medications. Morphine was not helpful. Dilaudid helped her pain, but made her nauseated. Initial CT read was suspicious for bowel wall thickening and enteritis. Read from our radiologist indicates potential fistula. She declined NG placement in the ED. Since admission early this morning, she has had several loose stools. Her pain has much improved. Medical History (Last Reviewed 06/30/20 @ 23:49 by Marty Camacho DO) Acid reflux Onset Date: Unknown Anemia, iron deficiency Onset Date: Unknown d/t malabsorbtion History of blood transfusion Onset Date: ~03/2010 after pyloric stenosis surgery Hypertrophic pyloric stenosis Onset Date: ~03/2010 IUD complication Onset Date: Unknown Insomnia Onset Date: ~06/13/12 Pyloric stenosis, acquired Onset Date: ~03/2010 Surgical History: Surgical History (Last Reviewed 06/30/20 @ 23:49 by Marty Camacho DO) History of endometrial biopsy Onset Date: ~09/11/13 Negative for hyperplasia and malignancy History of hysteroscopy Onset Date: ~11/05/13 w/Novasure ablation History of total vaginal hysterectomy (TVH) Onset Date: ~10/21/14 Cervix-no pathology. Endometrium-absent endometrium exhibiting progesterone effect of myometrium. Myometrium-no pathologic findings. Hx of bilateral salpingectomy Onset Date: ~10/21/14 Hx of breast augmentation Onset Date: ~02/2014 Hx of cystoscopy Onset Date: ~10/21/14 Hx of laparoscopy Onset Date: ~09/2005 IUD removal Hx of ovarian cystectomy Onset Date: ~2005 Hx of pylorotomy Onset Date: ~03/2010 Hx of tonsillectomy Onset Date: Unknown 1 yrs old [place] teeth removed Onset Date: ~2012 Family History: Family History (Last Reviewed 06/30/20 @ 23:49 by Marty Camacho DO) Mother Hypertension Grandmother Heart disease Maternal Diabetes mellitus, type II Maternal Grandfather Heart disease Maternal Social History: (Last Reviewed 06/30/20 @ 23:49 by Marty Camacho DO) Social History: Marital status: household members: spouse number of children: 4 current occupational status: unemployed current occupation: Stay at home Mom current occupational exposures/hazards: No Service: No Tobacco: Smoking Status: Never smoker Alcohol: alcohol intake: current details: 1/month Substance Use: substance use type: does not use Dietary Habits: caffeine: Yes caffeine comment: Current every day Personal Safety: victim of physical abuse: No victim of emotional abuse: No Review Of Systems (GEN) - Review of Systems Generalized/Overall Review: Absent: Fever Respiratory: Absent: Shortness of Breath Cardiac: Absent: Chest Pain Abdominal: Present: Vomiting - After Dilaudid administration, Abdominal Pain. Absent: Diarrhea Genitourinary: Present: No Symptoms Reported Immunizations: IMMUNIZATION HX Immunizations Up to Date Yes History of Influenza Vaccine Yes Allergies/Adverse Reactions: Allergies Allergy/AdvReac Type Severity Reaction Status Date / Time No Known Allergies Allergy Verified 06/30/20 20:59 Home Medications: HOME MEDICATIONS dexlansoprazole 60 mg capsule,biphase delayed release 60 mg PO DAILY #90 cap 05/05/20 [Last Taken Unknown] Exam - Exam Vital Signs: Vital Signs - Last Taken Temp 36.8 C 07/01/20 06:24 Pulse 81 07/01/20 06:24 Resp 18 07/01/20 06:24 BP 114/79 07/01/20 06:24 Pulse Ox 99 07/01/20 06:24 Constitutional: Present: Alert, Cooperative, Well developed, Well nourished, No distress Respiratory: Present: normal breath sounds, no respiratory distress Cardiovascular/Chest: Present: regular rate, rhythm Abdomen: Present: soft, tender - epigastric, periumbilic Extremity: Absent: lower extremity edema Eye contact: Present: cooperative, good eye contact Diagnostic Studies: Abnormal Lab Results 06/30/20 06/30/20 06/30/20 Range/Units 20:55 21:05 21:05 WBC 13.6 H (4.0-10.5) K/mm3 Hgb (12.5-16.0) gm/dL MCHC (32-36) g/dl Neutrophils % 85.1 H (42-75.0) % Lymphocytes % 5.1 L (20-51) % Monocytes % (0.0-9) % Neutrophils # 11.6 H (1.3-6.0) K/mm3 Lymphocytes # 0.70 L (1.5-3.5) k/mm3 Monocytes # 1.2 H (0.0-1.0) k/mm3 Random Glucose 138 H (70-110) mg/dL ALT 16 L (19-67) U/L Urine WBC Trace H (0-5) /hpf Ur Epithelial Cells 5-10 H (0-5) /hpf Urine Bacteria 1+ H (NONE) 07/01/20 Range/Units 07:50 WBC (4.0-10.5) K/mm3 Hgb 12.1 L (12.5-16.0) gm/dL MCHC 31.7 L (32-36) g/dl Neutrophils % 79.9 H (42-75.0) % Lymphocytes % 8.3 L (20-51) % Monocytes % 11.0 H (0.0-9) % Neutrophils # 6.7 H (1.3-6.0) K/mm3 Lymphocytes # 0.70 L (1.5-3.5) k/mm3 Monocytes # (0.0-1.0) k/mm3 Random Glucose (70-110) mg/dL ALT (19-67) U/L Urine WBC (0-5) /hpf Ur Epithelial Cells (0-5) /hpf Urine Bacteria (NONE) Laboratory Results WBC 8.4 K/mm3 (4.0-10.5) D 07/01/20 07:50 RBC 4.31 M/mm3 (4.2-5.4) 07/01/20 07:50 Hgb 12.1 gm/dL (12.5-16.0) L 07/01/20 07:50 Hct 38.2 % (37.0-47.0) 07/01/20 07:50 MCV 88.6 fl (78-100) 07/01/20 07:50 MCH 28.1 pg (27-31) 07/01/20 07:50 MCHC 31.7 g/dl (32-36) L 07/01/20 07:50 RDW 13.1 % (11.5-14.0) 07/01/20 07:50 Plt Count 254 K/mm3 (150-450) 07/01/20 07:50 MPV 10.1 fl (8-12.5) 07/01/20 07:50 Immature Gran % (Auto) 0.10 % (0.001-0.429) 07/01/20 07:50 Immature Gran # (Auto) 0.01 K/mm3 (0.000-0.0310) 07/01/20 07:50 Neutrophils % 79.9 % (42-75.0) H 07/01/20 07:50 Lymphocytes % 8.3 % (20-51) L 07/01/20 07:50 Monocytes % 11.0 % (0.0-9) H 07/01/20 07:50 Eosinophils % 0.5 % (0.0-3.0) 07/01/20 07:50 Basophils % 0.2 % (0.0-1.0) 07/01/20 07:50 Nucleated RBC % 0.0 k/mm3 (0-1) 07/01/20 07:50 Neutrophils # 6.7 K/mm3 (1.3-6.0) H 07/01/20 07:50 Lymphocytes # 0.70 k/mm3 (1.5-3.5) L 07/01/20 07:50 Monocytes # 0.9 k/mm3 (0.0-1.0) 07/01/20 07:50 Eosinophils # 0.0 k/mm3 (0.0-0.7) 07/01/20 07:50 Absolute Basophils 0.0 k/mm3 (0.0-0.1) 07/01/20 07:50 Sodium 133 mmol/L (132-142) 06/30/20 21:05 Plasma Sodium 134 mmol/L (130-142) 06/30/20 21:05 Potassium 3.6 mmol/L (3.4-4.6) 06/30/20 21:05 Chloride 99 mmol/L (97-106) 06/30/20 21:05 Carbon Dioxide 25.2 mmol/L (24-32.6) 06/30/20 21:05 Anion Gap 12.4 mmol/L (6.8-13.8) 06/30/20 21:05 BUN 8 mg/dL (3-23) 06/30/20 21:05 Creatinine 0.85 mg/dL (0.4-1.4) 06/30/20 21:05 Est GFR (Non-Af Amer) 78 mL/min (60-130) 06/30/20 21:05 BUN/Creatinine Ratio 9.4 (9.0-21.6) 06/30/20 21:05 Random Glucose 138 mg/dL (70-110) H 06/30/20 21:05 Calcium 8.8 mg/dL (7.9-10.9) 06/30/20 21:05 Calcium Adj for Albumin 8.6 mg/dL (8.4-10.2) 06/30/20 21:05 Total Bilirubin 0.6 mg/dL (0.0-1.1) 06/30/20 21:05 AST 13 U/L (0-48) 06/30/20 21:05 ALT 16 U/L (19-67) L 06/30/20 21:05 Alkaline Phosphatase 76 U/L (50-170) 06/30/20 21:05 Total Protein 7.4 gm/dL (6.2-8.2) 06/30/20 21:05 Albumin 3.8 gm/dl (3.4-5.0) 06/30/20 21:05 Amylase 44 U/L (25-115) 06/30/20 21:05 Lipase 78 U/L (73-393) 06/30/20 21:05 Urine Color Yellow 06/30/20 20:55 Urine Appearance Clear (CLEAR) 06/30/20 20:55 Urine pH 6.5 pH (5.0-7.0) 06/30/20 20:55 Ur Specific [place] 1.025 SP.GR. (1.005-1.010) 06/30/20 20:55 Urine Protein Negative mg/dL (NEGATIVE) 06/30/20 20:55 Urine Glucose (UA) Negative mg/dL (NEGATIVE) 06/30/20 20:55 Urine Ketones 50 mg/dL (NEGATIVE) 06/30/20 20:55 Urine Blood Negative /ul (NEGATIVE) 06/30/20 20:55 Urine Nitrate Negative (NEGATIVE) 06/30/20 20:55 Urine Bilirubin Negative mg/dl (NEGATIVE) 06/30/20 20:55 Urine Urobilinogen Normal EU/dl (NORMAL) 06/30/20 20:55 Ur Leukocyte Esterase Negative /ul (NEGATIVE) 06/30/20 20:55 Urine RBC None seen /hpf (0-5) 06/30/20 20:55 Urine WBC Trace /hpf (0-5) H 06/30/20 20:55 Ur Epithelial Cells 5-10 /hpf (0-5) H 06/30/20 20:55 Urine Bacteria 1+ (NONE) H 06/30/20 20:55 Urine Culture Comments No culture indicated 06/30/20 20:55 SARS-CoV-2 (PCR) Not detected (NotDetected) 07/01/20 01:30 Assessment/Plan - Narrative Narrative: She was diagnosed with SBO in the ED, and declined NG tube placement. CT suggestive of possible fistula formation. Her WBC and pain improved, so fistula less likely. She had loose BMs after arriving to the floor, and her pain improved. She was seen by surgery, who ordered labs to evaluate for inflammatory disease. She is looking forward to [place] home today. - Assessment/Plan (1) Small bowel obstruction due to adhesions Problem: Acute
--- NOTE | 2020-07-01 11:59 | DS ---
(1) Small bowel obstruction due to adhesions Problem: Acute Date of Discharge:: 07/01/20 Hospital Course: Patient with past medical history of previous small bowel obstructions presents with two days central abdominal pain. She denied nausea, vomiting, fever, med changes, or other symptoms. She was hospitalized for this in March 2019. She has had a few episodes at home for which she did not seek medical attention that resolved on their own. In the ED, she was diagnosed with a small bowel obstruction and given pain medications. Morphine was not helpful. Dilaudid helped her pain, but made her nauseated. Initial CT read was suspicious for bowel wall thickening and enteritis. She declined NG placement in the ED. Since admission early this morning, she has had several loose stools. Her pain has much improved. Over read by our radiologist suggested possible fistula formation. Her WBC went from 13.6 to 8.4. Her pain improved, making fistula less likely. Her SBO has resolved. She was able to tolerate clear liquids, and was anxious to go home. She was seen by our surgeon also, who ordered labs to evaluate for inflammatory disease. will have her follow up with me next week. Procedures Performed: none Results and Findings: Lab Pending Results 06/30/20 20:55: Urine Color Yellow, Urine Appearance Clear, Urine pH 6.5, Ur Specific Flynn 1.025, Urine Protein Negative, Urine Glucose (UA) Negative, Urine Ketones 50, Urine Blood Negative, Urine Nitrate Negative, Urine Bilirubin Negative, Urine Urobilinogen Normal, Ur Leukocyte Esterase Negative, Urine RBC None seen, Urine WBC Trace H, Ur Epithelial Cells 5-10 H, Urine Bacteria 1+ H, Urine Culture Comments No culture indicated 06/30/20 21:05: WBC 13.6 H, RBC 4.74, Hgb 13.4, Hct 41.7, MCV 88.0, MCH 28.3, MCHC 32.1, RDW 13.0, Plt Count 319, MPV 10.5, Immature Gran % (Auto) 0.20, Immature Gran # (Auto) 0.03, Neutrophils % 85.1 H, Lymphocytes % 5.1 L, Monocytes % 8.5, Eosinophils % 0.8, Basophils % 0.3, Nucleated RBC % 0.0, Neutrophils # 11.6 H, Lymphocytes # 0.70 L, Monocytes # 1.2 H, Eosinophils # 0.1, Absolute Basophils 0.0 06/30/20 21:05: Sodium 133, Plasma Sodium 134, Potassium 3.6, Chloride 99, Carbon Dioxide 25.2, Anion Gap 12.4, BUN 8, Creatinine 0.85, Est GFR (Non-Af Amer) 78, BUN/Creatinine Ratio 9.4, Random Glucose 138 H, Calcium 8.8, Calcium Adj for Albumin 8.6, Total Bilirubin 0.6, AST 13, ALT 16 L, Alkaline Phosphatase 76, Total Protein 7.4, Albumin 3.8, Amylase 44, Lipase 78 07/01/20 01:30: SARS-CoV-2 (PCR) Not detected 07/01/20 07:50: WBC 8.4 D, RBC 4.31, Hgb 12.1 L, Hct 38.2, MCV 88.6, MCH 28.1, MCHC 31.7 L, RDW 13.1, Plt Count 254, MPV 10.1, Immature Gran % (Auto) 0.10, Immature Gran # (Auto) 0.01, Neutrophils % 79.9 H, Lymphocytes % 8.3 L, Monocytes % 11.0 H, Eosinophils % 0.5, Basophils % 0.2, Nucleated RBC % 0.0, Neutrophils # 6.7 H, Lymphocytes # 0.70 L, Monocytes # 0.9, Eosinophils # 0.0, Absolute Basophils 0.0 Discharge Location: Home Disposition: Home self-care Condition: Stable Discharge Activity: Activity as tolerated Discharge Diet: General/regular food - gradual resumption of regular diet Referrals: Janna Myrick DO [Primary Care Provider] - One Week Complete Home Medications List: Complete Home Medication List: dexlansoprazole 60 mg capsule,biphase delayed release 60 mg PO DAILY #90 cap 05/05/20
[2020-07-01 12:40] VITALS: BP 128/78
[2020-07-03 15:32] LABS: P-ANCA Titer DNR titer (<1:20)
== END 2020-07-01 12:40 | disposition home or self-care (01) ==
LOC: ER 20:29 → INTOOBSV 07-01 02:38 → MS 07-01 02:38
PROVIDERS: ADMIT Family Medicine; ATTEND Family Medicine